=== PATIENT | female | born 1955 | race Asian ===

== ENCOUNTER 2025-05-07 16:52 | Emergency (ER) | payer MEDICARE, SELFPAY ==
[2025-05-07 16:54] VITALS: BMI 24.2
[2025-05-07 16:57] VITALS: BP 125/71
[2025-05-07 17:35] LABS: ALT (SGPT) 24 U/L (0-35); AST (SGOT) 27 U/L (14-36); Albumin 4.6 g/dl (3.5-5.0); Alkaline Phosphatase 63 U/L (38-126); Blood Urea Nitrogen 11 mg/dl (7-17); Calcium 9.1 mg/dl (8.4-10.2); Carbon Dioxide 22 mmol/L (22-30); Chloride 108 mmol/L (98-107); Glucose 101 mg/dl (70-99); Potassium 3.7 mmol/L (3.5-5.1); Sodium 138 mmol/L (135-145); Total Protein 7.1 g/dl (6.3-8.2); eGFR > 60.00
[2025-05-07 17:43] LABS: % Basophils 0.5 % (0-2); % Eosinophils 1.9 % (0-6); % Lymphocytes 56.3 % (20.5-51.1); % Monocytes 4.6 % (1.7-9.3); % Neutrophils 36.7 % (42.2-75.2); Absolute Eosinophils 0.1 10^3/uL (0-0.7); Absolute Lymphocytes 2.3 10^3/uL (1.2-3.4); Absolute Monocytes 0.2 10^3/uL (0.1-0.6); Absolute Neutrophils 1.5 10^3/uL (1.4-6.5); Hematocrit 38.4 % (37.0-47.0); Hemoglobin 12.9 g/dL (12.0-16.0); Mean Corp Hgb Conc. 33.6 g/dL (33.0-37.0); Mean Corpuscular Hgb 30.9 pg (27.0-31.0); Mean Corpuscular Volume 92.1 fL (81.0-99.0); Mean Platelet Volume 8.4 fL (7.4-10.4); Nucleated Red Blood Cells % 0 %; Platelet Count 182 10^3/uL (130-400); Red Blood Cell Count 4.17 10^6/uL (4.20-5.40); White Blood Cell Count 4.1 10^3/uL (4.8-10.8)
[2025-05-07 17:48] LABS: Troponin I < 0.012 ng/ml
[2025-05-07 18:22] VITALS: BP 124/57
[2025-05-07 18:30] VITALS: BP 115/61
[2025-05-07] MEDS: NSS 1000 IV (18:38)
--- NOTE | 2025-05-07 18:55 | ED.GENMED ---
History of Present Illness
General
Chief Complaint: Fainting Sensation
Time Seen by Provider: 05/07/25 18:25
History of Present Illness
History of Present Illness:
Patient is a 69-year-old female presenting to the emergency department with lightheadedness dizziness. Patient states that she is prepping for colonoscopy tomorrow. She last had anything to eat yesterday at 6 PM. Today only had water and coffee.
States that she had her laxatives had 2 bowel movements and then felt lightheaded and weak. She did not pass out. No chest pain. No shortness of breath. No nausea or vomiting. No blood in her stools. She does not have any soup or any other
clear liquids besides a few glasses of water in the coffee.
Past History
Past History
ED Past Medical History: Psychiatric and Other (Hepatitis B)
Social History
Tobacco: Non-smoker
Alcohol: None
Drug: None
Personal:
Living: with family
Phy Exam
Physical Exam
Physical Exam:
GENERAL: in no acute distress
HEENT: normocephalic, extraocular movements intact, moist oral mucosa
NECK: normal inspection
RESPIRATORY: no respiratory distress, clear to auscultation bilaterally
CARDIOVASCULAR: regular rate and rhythm
ABDOMEN/: soft, non-distended, non-tender to palpation, no rebound or guarding
EXTREMITIES: non-tender, no edema/swelling
NEUROLOGIC: awake and alert, moves all extremities
SKIN: warm
Course
Orders/Labs/Results
Orders:
Orders
05/07/25 17:04
Electrocardiogram (*1) Urgent
Reason for Study: Chest Pain
EKG- Treatment ONCE
05/07/25 17:12
Complete Blood Count/With Diff Urgent
Comprehensive Metabolic Panel Urgent
Troponin I Urgent
05/07/25 18:28
0.9% Sodium Chloride 1000 ml [Nss] 1,000 ml IV BOLUS
Abnormal Lab Results
05/07/25
17:12
WBC 4.1 L 10^3/uL
(4.8-10.8)
RBC 4.17 L 10^6/uL
(4.20-5.40)
Neutrophils % 36.7 L %
(42.2-75.2)
Lymphocytes % 56.3 H %
(20.5-51.1)
Chloride 108 H mmol/L
(98-107)
Creatinine 0.5 L mg/dL
(0.6-1.0)
Glucose 101 H mg/dl
(70-99)
05/07/25 17:12
05/07/25 17:12
Vital Signs
Initial and Last Documented VS:
Initial Vital Signs
Temp Pulse Resp BP Pulse Ox
98.7 F 60 20 125/71 96
05/07/25 16:57 05/07/25 16:57 05/07/25 16:57 05/07/25 16:57 05/07/25 16:57
Last Documented Vital Signs
Temp Pulse Resp BP Pulse Ox
98.7 F 56 13 115/67 98
05/07/25 16:57 05/07/25 19:42 05/07/25 19:42 05/07/25 19:42 05/07/25 19:00
MDM/Problems Addressed
Differential Diagnosis Includes:
Patient is a 69-year-old woman presenting to the emergency department with lightheadedness in the setting of prepping for a colonoscopy. On arrival vitals are unremarkable exam is reassuring. Likely dehydration/orthostatic. Could be cardiac
arrhythmia or metabolic derangement though less likely. EKG per my interpretation sinus bradycardia. Blood work reassuring. Will give IV fluids and reassess patient's symptoms.
*Critical Care Note
Total Time (30-74mins, 75-104mins- exclusive of procedures): Not Applicable
Update Note
Update Note:
On reassessment patient resting comfortably. She has been ambulatory without any symptoms. Will discharge at this time
ED Attending Note
-
Portions of this chart may have been created with voice recognition software.� Occasional wrong word or��sound alike� substitutions may have occurred due to the inherent limitations of voice recognition software.
Discharge Plan
Departure
Patient Disposition: Home (Routine Discharge)
Date of Disposition: 05/07/25
Time of Disposition: 20:25
Patient with high blood pressure during this ER visit?: No
Discharge Problem:
Dehydration
Instructions: Dehydration in adults - ED discharge instructions
Prescriptions:
No Action
buspirone 10 mg Capsule
10 mg PO BID
aripiprazole [Abilify] 10 mg Tablet
10 mg PO DAILY
tenofovir disoproxil fumarate 300 mg Tablet
300 mg PO DAILY
Referrals:
UNKNOWN - PT DOES,NOT KNOW [Family Provider]
Activity Restrictions/Additional Instructions:
You were seen in the Emergency Department today for feeling weak. While you were here we performed blood work, which was reassuring. We did give you IV fluids. Please make sure you stay well-hydrated until your colonoscopy tomorrow.
We would like for you to follow up with your primary care physician for further evaluation. If you experience fever, worsening of your symptoms, or develop any other new or concerning symptoms, please return to the Emergency Department immediately.
Please see the attached sheet for additional information.
Interventions
Interventions:
*Risk Screen - Suicide Last Done: 05/07/25 18:14
*General Assessment Last Done: 05/07/25 18:14
*Neglect/Abuse Screening Last Done: 05/07/25 18:14
*ED- Fall Risk Assessment Last Done: 05/07/25 18:14
ED- Cardiac Assessment Last Done: 05/07/25 19:45
ED- Neurological Assessment Last Done: 05/07/25 19:45
Discharge Date and Time
Print Language: SPANISH
[2025-05-07 19:00] VITALS: BP 120/69
[2025-05-07 19:42] VITALS: BP 115/67
[2025-05-07 20:00] VITALS: BP 114/67
== END 2025-05-07 20:41 | disposition home or self-care (01) ==
LOC: EMR 16:52
PROVIDERS: Emergency Medicine; EMERGENCY PHYSICIAN Student in an Organized Health Care Education/Training Program
DX: E86.0 Dehydration (principal); R00.1 Bradycardia, unspecified
CPT/HCPCS: 96360; 99284; 80053; 84484; 85025; 93005